=== PATIENT | female | born 1970 | race Hispanic/Latino ===

== ENCOUNTER 2022-06-10 15:40 | Emergency (ER) | payer OTHER ==
[~2022-06-10] VITALS: Ht 149.9 cm; Wt 56.7 kg
[2022-06-10 19:17] VITALS: BP 118/72
== END 2022-06-10 18:35 | disposition other institution (70) ==
LOC: FSED 15:46
DX: S06.6X0A Traumatic subarachnoid hemorrhage without loss of consciousness, initial encounter (principal); M25.512 Pain in left shoulder; W01.0XXA Fall on same level from slipping, tripping and stumbling without subsequent striking against object, initial encounter; Y92.89 Other specified places as the place of occurrence of the external cause; Q90.9 Down syndrome, unspecified; F03.90 Unspecified dementia, unspecified severity, without behavioral disturbance, psychotic disturbance, mood disturbance, and anxiety
CPT/HCPCS: 70450; 71045; 72125; 80053; 85025; 85610; 99284